=== PATIENT | female | born 2000 | race Caucasian/White ===

== ENCOUNTER 2025-10-09 09:47 | Emergency (ER) | payer MEDICAID ==
[~2025-10-09] VITALS: Ht 157.5 cm; Wt 97.3 kg
[2025-10-09] MEDS: CEFTRIAXONE 500 MG VIAL IM ONE (12:00)
[2025-10-09] MEDS: LEVONORGESTREL 1.5MG tablet 1.5 MG TABLET PO ONE (12:05)
[2025-10-09] MEDS: TINIDAZOLE 500 MG TABLET PO ONE (13:26)
[2025-10-09] MEDS: CefTRIAXone 500MG IM Kit w/LIDOcaine IM ONE (13:28)
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
[2025-10-09 15:11] LABS: URINE HCG NEGATIVE (NEG)
[2025-10-09 15:17] VITALS: BP 140/88; PULSE 88; RESP 14; TEMP 97.9; O2SAT 98
== END 2025-10-09 15:44 | disposition home or self-care (01) ==
LOC: EEVIPCON 09:48 → EDBD 09:48 → ER 09:48
DX: Z00.00 Encounter for general adult medical examination without abnormal findings (principal); Z88.8 Allergy status to other drugs, medicaments and biological substances
CPT/HCPCS: 81025; 96372; 99283; J0696